=== PATIENT | female | born 1980 | race Caucasian/White ===

== ENCOUNTER 2024-12-15 15:09 | Emergency (ER) | payer OTHER, SELFPAY ==
--- OUTSIDE RECORDS SUMMARY | 2016-03-31 01:00 | XMS_ITS | Encounter Summary ---
Author Organization [facility] Healthcare Address [address] [place] [address] Care Team Providers Care Canned Food Reconditioning Inspector Name Role Phone Unavailable Primary Care Provider Unavailabl e Reason for Visit * Diagnostic Imaging (Routine) - Pending Review Specialty Diagnoses / Procedures Referred By Contac t Referred To Contact Procedures Breast Imaging Screening Outside Reference Transcribed Order, Provider Referral ID Status Reason Start Date Expiration Date V isits Requested Visits Authorized [id number] Pending Review 12/17/2023 01/15/2025 1 1 Encounter Details Date Type Department Care Team (Late st Contact Info) Description 03/31/2016 Hospital Encounter [facility] [address] [place] [id number] Social History Tobacco Use Types Packs/Day Years Used Date Smoking Tobacco: Every Day Comments Unknown Sex and Gender Information Value Date Recorded Sex Assigned at Not on file Legal Sex Female 9:28 PM COMMUNITY RELATIONS POLICE LIEUTENANT Gender Identity Not on file Sexual Orientation Not on file documented as of this encounter Plan of Treatment Not on file documented as of this encounter Procedures Procedure Name Priority Date/Time Associated Diagnosis Comments BREAST IMAGING MG SCREENING OUTSIDE REFERENCE Routine 03/31/2016 12:00 AM COMMUNITY RELATIONS POLICE LIEUTENANT documented in this encounter Results * Breast Imaging Screening Outside Reference (03/31/2016 12:00 AM COMMUNITY RELATIONS POLICE LIEUTENANT) Impressions RAD[facility]MAMMO_[facility] - 12/17/2023 2:31 PM CDT These images are for Reference purposes only and have not been reviewed by [facility]iology. There will be no report generated by a [facility] Radiologist. Narrative RAD_MAMMO_[facility] - 12/17/2023 2:31 PM CDT EXAMINATION: Images For Reference Purposes Only us Provider Transcribed Order IMG MAMMO PROCEDURES Final Result RAD_MAMMO_[facility] documented in this encounter Visit Diagnoses Not on filedocumented in this encounter
--- OUTSIDE RECORDS SUMMARY | 2016-03-31 01:00 | XMS_ITS | Encounter Summary ---
Author Organization [facility] Healthcare Address [address] [place] [address] Care Team Providers Care Auto Camp Attendant Name Role Phone Unavailable Primary Care Provider Unavailabl e Reason for Visit * Diagnostic Imaging (Routine) - Pending Review Specialty Diagnoses / Procedures Referred By Contac t Referred To Contact Procedures Breast Imaging Screening Outside Reference Transcribed Order, Provider Referral ID Status Reason Start Date Expiration Date V isits Requested Visits Authorized [id number] Pending Review 12/17/2023 01/15/2025 1 1 Encounter Details Date Type Department Care Team (Late st Contact Info) Description 03/31/2016 Hospital Encounter [facility] Radiology [facility] [address] [place] [id number] Social History Tobacco Use Types Packs/Day Years Used Date Smoking Tobacco: Every Day Comments Unknown Sex and Gender Information Value Date Recorded Sex Assigned at Not on file Legal Sex Female 9:28 PM CARDIAC TECHNOLOGIST Gender Identity Not on file Sexual Orientation Not on file documented as of this encounter Plan of Treatment Not on file documented as of this encounter Procedures Procedure Name Priority Date/Time Associated Diagnosis Comments BREAST IMAGING MG SCREENING OUTSIDE REFERENCE Routine 03/31/2016 12:00 AM CARDIAC TECHNOLOGIST documented in this encounter Results * Breast Imaging Screening Outside Reference (03/31/2016 12:00 AM CARDIAC TECHNOLOGIST) Impressions RAD_MAMMO_[facility] - 12/17/2023 2:31 PM CDT These images are for Reference purposes only and have not been reviewed by [facility] Radiology. There will be no report generated by a [facility] Radiologist. Narrative RAD_MAMMO_[facility] - 12/17/2023 2:31 PM CDT EXAMINATION: Images For Reference Purposes Only us Provider Transcribed Order IMG MAMMO PROCEDURES Final Result RAD_MAMMO_[facility] documented in this encounter Visit Diagnoses Not on filedocumented in this encounter
--- NOTE | ~2024-12-15 | XR_ITS ---
Exam: Abdomen 1V HISTORY: ureterolithiasis COMPARISON: None. TECHNIQUE: Supine images of the abdomen FINDINGS: Bowel gas pattern is non-obstructive. There is no free air or deep sulci. Multiple well-circumscribed calculi are identified throughout the abdomen and pelvis, which may represent patient's ureteral lithiasis. These are as follows: 4.7 mm calculus projecting over the expected region of the left kidney. 5.8 mm calculus projecting over the expected region of the mid to distal right ureter. 3.4 mm calculus within the right hemipelvis. Bones and soft tissues are unremarkable. IMPRESSION: Nonspecific, nonobstructive bowel gas pattern. Multiple well-circumscribed calculi projecting over the abdomen and pelvis, as detailed above. Reviewed, dictated and finalized at location A.
--- OUTSIDE RECORDS SUMMARY | 2024-12-15 15:12 | XMS_ITS | Encounter Summary ---
Author Organization [facility] Address [address] [place] [id number] Care Team Providers Care Medical Artist Name Role Phone Shelby Tomlinson DO Primary Care Provider Encounter Details Date Type Department Care Team (Late st Contact Info) Description 01/26/2023 Hymite Message [facility] Family & Internal Medicine - [address] [phone] Mychart, [facility] Provider Screening Social History Tobacco Use Types Packs/Day Years Used Date Smoking Tobacco: Every Day Cigarettes 0.5 20 Smokeless Tobacco: Never Comments:PCP to application counselor Alcohol Use Standard Drinks/Week Comments Yes 1.7 (1 standard drink = 0.6 oz p ure alcohol) AUDIT-C Answer Date Recorded Frequency of Alcohol Consumption Monthly or less 09/27/2018 Average Number of Drinks 1 or 2 019 Frequency of Binge Drinking Not on file 07/2018 PHQ-2 Answer Date Recorded Patient Health Questionnaire-2 Score 0 06/05/2022 Comments No Sex and Gender Information Value Date Recorded Sex Assigned at Female 03/05/2020 8:01 AM DISPOSAL WORKER Legal Sex Female 6:51 PM CDT Gender Identity Female 03/05/2020 8:01 AM DISPOSAL WORKER Sexual Orientation Straight 03/05/2020 8: 01 AM DISPOSAL WORKER 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 Not on file Not on file Not on file documented as of this encounter Plan of Treatment Not on file documented as of this encounter Visit Diagnoses Not on filedocumented in this encounter Additional Health Concerns Infection Onset Date Last Indicated Resolved Time COVID-19 Rule Out 04/21/2023 04/21/2023 04/21/2023 3:35 PM DISPOSAL WORKER Assessment Noted Time PHQ-9 Depression Total Score: 0 06/05/19 7:48 AM DISPOSAL WORKER documented as of this encounter Care Teams Medical Artist Relationship Specialty Start Date End Date Shelby Tomlinson DO [address] [place] [address] [place] [address] PCP - General FAMILY PRACTICE 06/17/18 documented as of this encounter
--- OUTSIDE RECORDS SUMMARY | 2024-12-15 15:12 | XMS_ITS | Clinical Summary ---
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/27/2011 Family History Medical History Relation Name Comments Cancer Other Reported Family History Of Cancer - Father and Grandmother (Added by TW Conv) Heart disease Other Heart Disease - Mother and Grandfather (Added by TW Conv) Hypertension Other Reported Previo us High Blood Pressure - Sister and Mother (Added by TW Conv) Other Other Blood Disorders - Aunt and Grandmother (Added by TW Conv) Relation Name Status Comments Other Social History Tobacco Use Types Packs/Day Years Used Date Smoking Tobacco: Every Day Comments Unknown Sex and Gender Information Value Date Recorded Sex Assigned at Not on file Legal Sex Female 9:28 PM PEER SPECIALIST Gender Identity Not on file Sexual Orientation Not on file Obstetrics History Last Filed Vital Signs Vital Sign Reading Time Taken Comments Blood Pressure 89/55 05/17/2012 10:30 AM PEER SPECIALIST Pulse - - Temperature - - Respiratory Rate - - Oxygen Saturation - - Inhaled Oxygen Concentration - - Weight 74.6 kg (164 lb 8.1 oz) 05/17/2012 10:30 AM PEER SPECIALIST Height - - Body Mass Index - - Plan of Treatment Health Maintenance Due Date Last Done Comments Cervical Cancer Screening 1982 Depression Screening 1982 Hepatitis C Screening 1982 Varicella Vaccines (1 of 2 - 13+ 2-dose series) 1995 DTaP/Tdap/Td Vaccine (6 - Tdap) 12/01/1997 11/30/1997, 12/10/1987, 10/25/1985, Additional history exists Regular Well Visit/Exam 18-64 02/14/2000 Pneumococcal vaccine <65 (2 of 2 - PCV) 05/30/2016 05/30/2015 Covid-19 Vaccine (3 - 2023-2 5 season) 2023 07/29/2020, 07/01/2020 Breast Cancer Screening-Mammogram 12/23/2024 024 Influenza Vaccine (#1) 2024 03/05/2020, 2015 Hepatitis B Screening Completed 06/25/1998 , 01/16/1998, 12/12/1997 HPV Vaccines Completed 06/27/2009, 01/25, 12/12/2008 Procedures Procedure Name Priority Date/Time Associated Diagnosis Comments SCREENING MAMMOGRAM BILATERAL W JAMES Schedule Routine, Read Routine (OP Routine) 12/24/2023 1:00 PM CDT Screening mammogram, encounter for from Last 3 Months or Most Recently Relevant to Health Maintenance Results * Screening Mammogram Bilateral W James (12/24/2023 1:00 PM CDT) Anatomical Region Laterality Modality Breast Bilateral Mammography Narrative 12/28/2023 3:35 PM CDT Mammogram Technique: Bilateral Digital Breast Tomosynthesis, Bilateral C-view 2D Screening mammogram. Views obtained: bilateral craniocaudal and bilateral mediolateral oblique. Computer Aided Detection was performed. Mammogram Findings: The present examination has been compared to a prior imaging study performed at [facility] [place] on 03/31/2016. There are scattered areas of fibroglandular density. There is no suspicious abnormality in either breast. There are no significant changes from the prior study. Impression: There is no mammographic evidence of malignancy. Annual screening mammography is recommended. OVERALL FINAL ASSESSMENT: BI-RADS CATEGORY 1: Negative. Procedure Note Molly Nair MD - 12/28/2023 Mammogram Technique: Bilateral Digital Breast Tomosynthesis, Bilateral C-view 2D Screening mammogram. Views obtained: bilateral craniocaudal and bilateral mediolateral oblique. Computer Aided Detection was performed. Mammogram Findings: The present examination has been compared to a prior imaging study performed at [facility] on 03/31/2016. There are scattered areas of fibroglandular density. There is no suspicious abnormality in either breast. There are no significant changes from the prior study. Impression: There is no mammographic evidence of malignancy. Annual screening mammography is recommended. OVERALL FINAL ASSESSMENT: BI-RADS CATEGORY 1: Negative. us Self Screening Mammogram IMG MAMMO PROCEDURES Fi nal Result from Last 3 Months or Most Recently Relevant to Health Maintenance [place] For more information, please contact: [phone] Documents on File Type Date Recorded Patient Partner Alliance Manager Expl anation ADVANCE DIRECTIVE 08/23/2018 8:49 AM Care Teams Environmental Health Manager Relationship Specialty Start Date End Date Shelby Tomlinson DO [address] [place] [address] [place] [address] PCP - General Sports Medicine 11/18/23
--- OUTSIDE RECORDS SUMMARY | 2024-12-15 15:12 | XMS_ITS | Clinical Summary ---
Author Organization [facility] Address [address] [place] [address] Care Team Providers Care Pricing Associate Name Role Phone Shelby Tomlinson DO Primary Care Provider [phone] Allergies Active Allergy Reactions Criticality Noted Date Comments Prochlorperazine Throat swelling 06/17/2018 Diphenhydramine Unknown 12/09/2011 Medications albuterol sulfate HFA (PROAIR HFA) 108 (90 Base) MCG/ACT inhalerIndications :Cough,COVID Inhale 2 puffs into the lungs every 4 (four) hours as needed for Wheezing or Shortness of breath (cough). 18 g 3 05/01/19 22 Active Additional Information Patient not taking.Reported on 03/31/2024 estradiol 1 MG tablet Take 2 tablets (2 mg total) by mouth daily. Taking 2 mg daily 08/06/19 22 Active ondansetron (ZOFRAN-ODT) 4 MG disintegrating tablet Take 1 tablet (4 mg total) by mouth every 8 (eight) hours as needed for Nausea. 20 tablet 03/26/20 22 Active buPROPion (WELLBUTRIN) 100 MG tablet Take 1 tablet (100 mg total) by mouth 2 (two) times daily. 04/10/20 23 Active progesterone (PROMETRIUM) 200 MG capsule Take 1 capsule (200 mg total) by mouth daily. 04/10/20 23 Active clobetasol (TEMOVATE) 0.05 % creamIndications:D yshidrotic eczema Apply topically 2 (two) times daily. 30 g 3 08/19/19 24 Active methylPREDNISolone , ADILSON, (MEDROL DOSEPAK) 4 MG tabletIndications: Brachioradialis muscle tenderness 6 TABLETS ON d1, 5 TABLETS d2, 4 TABLETS DAY THREE, 3 TABLETS d4, 2 TABLETS d5, AND 1 TABLET d6 1 each 03/31/20 24 Active meloxicam (MOBIC) 15 MG tabletIndications: Brachioradialis muscle tenderness TAKE 1 TABLET (15 MG TOTAL) BY MOUTH DAILY. 30 tablet 3 08/29/19 25 Active oxyCODONE-acetamin ophen (PERCOCET) 5-325 MG tabletIndications: Acute Pain < 3 Day Supply Take 1-2 tablets by mouth every 6 (six) hours as needed for Pain. Indications: Acute Pain < 3 Day Supply 6 tablet 11/30/19 25 Active naloxone (NARCAN) 4 MG/0.1ML nasal spray 1 spray by Nasal route as needed for Opioid reversal. may repeat every 2 to 3 minutes in alternating nostrils until medical assistance becomes available 1 each 11/30/19 25 026 Active cephALEXin (KEFLEX) 500 MG capsuleIndications :UTI (urinary tract infection) Take 1 capsule (500 mg total) by mouth 4 (four) times daily. (Pt. Was given Keflex 500mg PO BID x [address] Elkin Tomlinson re. Pt. Take 500mg QID x full 14 days.) 28 capsule 12/02/19 25 Active traMADol (ULTRAM) 50 MG tabletIndications: Acute Pain < 7 Day Supply,KIDNEY STONE Take 1 tablet (50 mg total) by mouth 3 (three) times daily as needed for Pain. Indications: Acute Pain < 7 Day Supply, KIDNEY STONE 21 tablet 12/02/19 25 Active cephALEXin (KEFLEX) 500 MG capsule Take 1 capsule (500 mg total) by mouth 2 (two) times daily for 14 days. 28 capsule 11/30/19 25 025 Active Problems Problem Noted Date Diagnosed Date Kidney stone 04/10/2022 Other microscopic hematuria 04/10/2022 Tobacco dependence due to cigarettes 02/23/2019 Recurrent acute serous otitis media of both ears 03/23/2016 Overview (02/27/2019): Date Onset: 03/23/2016 Tinnitus 03/23/2016 Overview (02/27/2019): Date Onset: 03/23/2016 Adenocarcinoma of cervix (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 gma dec of ov cancer History of iron deficiency 03/13/2016 Overview (02/27/2019): Date Onset: 03/13/2016 Hormone replacement therapy (HRT) 03/13/2016 Overview (02/27/2019): Date Onset: 03/13/2016 Smoker 03/13/2016 Overview (02/27/2019): Date Onset: 03/13/2016 Vertigo 03/13/2016 Overview (02/27/2019): Date Onset: 03/13/2016 Intermittent asthma ([facility]) 07/05/2014 Overview (02/27/2019): Date Onset: 07/05/2014 Papilledema associated with increased intracrani al pressure 10/27/2011 Resolved Problems Problem Noted Date Diagnosed Date Resolved Date Placental abnormality, antepartum ([facility]) 02/27/2019 03/15/2020 Encounters Date Type Department Care Team Description 12/11/2024 4:07 PM CDT - 12/11/2024 11:59 PM CDT Hospital Encounter [facility] [address] [place] [id number] Zeyad Ramos MD Discharge Disposition: Home or Self Care (Routine Discharge) 12/11/2024 Travel 12/04/2024 Telephone [facility] [address] [phone] Shelby Tomlinson DO Prior Authorization (PA request Tramadol.) 12/01/2024 Telephone [facility] [address] [place] [address] Shelby Tomlinson DO Pain 12/01/2024 Orders Only [facility] [address] [facility] [place] [address] Shelby Tomlinson DO 11/29/2024 10:40 AM CDT - 11/29/2024 12:39 PM CDT Emergency [facility] [address] [place] [address] Tuyet Bermeo MD Abdominal Pain Discharge Disposition: Home or Self Care (Routine Discharge) 11/29/2024 Travel from Last 3 Months Immunizations Immunization Administration Dates Next Due Dtp 12/10/1987, 6,1982,1982,1982 Dtp (Generic) 12/10/1987, 6,1982,1982,1982 Fluzone 6 Months+ Quad (0.5 mL Prefilled Syringe) 03/05/2020 HPV4 (Gardasil) 06/27/2009,02/12/2009,12/12/2008 Hepatitis B Pediatric 06/25/1998, 999,01/16/1998,1997,12/12/1997,12/12/1997 Influenza Adult (Generic) 05/30/2015,05/30/2015 MMR 12/11/1992,06/29/1983 MMR (MMRII) 12/11/1992,06/29/1983 Opv 12/10/1987, 6,1982,1982,1982 Pneumococcal (Pneumovax 23) 05/30/2015, 6 Polio Opv (Generic) 12/10/1987, 6,1982,1982,1982 Td 11/30/1997 Td (TDVAX) 11/30/1997 Family History Relation Status Comments Father (Age 32) leukemia Mother Alive colon cancer at 54 Sister 1 Alive Sister 2 Alive Social History Tobacco Use Types Packs/Day Years Used Date Smoking Tobacco: Every Day Cigarettes 0.5 20 Smokeless Tobacco: Never Tobacco Cessation:Ready to Q uit: Not Asked; Counseling Given: Yes Comments:PCP to direct care counselor Alcohol Use Standard Drinks/Week Comments Yes 1.7 (1 standard drink = 0.6 oz p ure alcohol) AUDIT-C Answer Date Recorded Frequency of Alcohol Consumption Monthly or less 09/27/2018 Average Number of Drinks 1 or 2 019 Frequency of Binge Drinking Not on file 07/2018 PHQ-2 Answer Date Recorded Patient Health Questionnaire-2 Score 0 04/21/2023 Comments No Sex and Gender Information Value Date Recorded Sex Assigned at Female 03/05/2020 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 Legal Sex Female 6:51 PM CDT Gender Identity Female 03/05/2020 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65 11/29/2024 10:43 AM CDT Plan of Treatment Health Maintenance Due Date Last Done Comments Annual Physical 1985 DTaP, Tdap and Td Vaccines (3 - Tdap) 12/01/1997 11/30/1997, 11/30/1997, 12/10/1987, Additional history exists Hepatitis C 02/14/2000 Pneumococcal Vaccine: Pediatrics (0 to 5 Years) and At-Risk Patients (6 to 49 Years) (2 of 2 - PCV) 05/30/2016 05/30/2015, 05/30/2015 COVID-19 Vaccine (3 - 2024-25 season) 2023 07/29/2020, 07/01/2020 PHQ-2 (Physician Truchas) 04/26/2024 04/21/2023 Mammogram Screening 12/23/2025 12/24/2023, Hepatitis B Vaccines Completed 06/25/1998, 06/25/1998, 01/16/1998, Additional history exists HPV Vaccines Completed 06/27/2009, 01/25, 12/12/2008 Meningococcal B Vaccine Aged Out No l onger eligible based on patient's age to complete this topic Meningococcal Vaccine Aged Out No rose adolph eligible based on patient's age to complete this topic RSV Immunizations Under 20 Months Aged Out No longer eligible based on patient's age to complete this topic Procedures Procedure Name Priority Date/Time Associated Diagnosis Comments CT ABD+PEL WO CON Routine 12/11/2024 4:2 1 PM CDT Right ureteral stone URINE BACTERIA CULTURE STAT 12:[address] ABD+PEL KIDNEY STONE STAT 11/29/2024 11:22 AM CDT URINALYSIS MICRO ONLY Routine 11/29/2024 11:15 AM CDT URINALYSIS AUTO DIP STAT 11/29/2024 1 1:06 AM CDT LIPASE STAT 11/29/2024 11:05 AM CDT COMPREHENSIVE METABOLIC PANEL STAT 11/29/2024 11:05 AM CDT CBC W/DIFF AUTOMATED STAT 11/29/2024 11:05 AM CDT MAMMOGRAM GENERIC (SCAN ORDER) 12/24/2023 from Last 3 Months or Most Recently Relevant to Health Maintenance Results * CT ABD+PEL WO CON (12/11/2024 4:21 PM CDT) Anatomical Region Laterality Modality Abdomen Computed Tomogra phy 12/11/2024 7:21 PM CDT Impressions 12/11/2024 7:27 PM CDT IMPRESSION: 1. There is a 4 mm proximal right ureteric stone now without associated hydronephrosis. Multiple nonobstructing right renal stones measuring up to 3 mm, unchanged. 2. No CT evidence of bowel obstruction or acute appendicitis. Ordered By: ZEYAD RAMOS Interpreted By: Stanley Franco MD, 12/11/2024 7:21 PM Narrative 12/11/2024 7:27 PM CDT [address] [place] [address] PROCEDURE: CT ABD+PEL WO CON HISTORY: Right ureteral stone. TECHNIQUE: Helical CT of the abdomen and pelvis was performed without intravenous contrast. A dose lowering technique was used for this procedure, which may include, but is not limited to, dose reduction technique, automated exposure control, the use of iterative reconstruction, and ALARA (As Low As Reasonably Achievable) / Image Gently techniques. COMPARISON: CT abdomen and pelvis without contrast, 11/29/2024. FINDINGS CT ABDOMEN/PELVIS: Lower thorax: There is subsegmental atelectasis in the lower lobes. The heart is normal in size. Liver: The liver is normal in size. No intrahepatic mass is seen on this non- contrast exam. Biliary tree: The gallbladder is present. There is no biliary ductal dilatation. Spleen: The spleen is normal in size. Pancreas: Unremarkable. Adrenal glands: Unremarkable. Kidneys: There is no hydronephrosis. Multiple nonobstructing right renal stones measuring up to 3 mm. There is a proximal to mid right ureteric stone measuring up to 4 mm without associated hydronephrosis. Lymph nodes: Abdomen: There is no abdominal adenopathy. Pelvis: There is no pelvic adenopathy. Vasculature: The aorta is normal caliber. Peritoneum/mesentery/omentum: There is no free fluid or free air. GI tract: There is no bowel obstruction.The appendix is normal. The terminal ileum is unremarkable. Is a moderate fecal burden within the right colon. There is no abnormal bowel wall thickening to suggest acute inflammation. Pelvic urogenital structures:The bladder is grossly unremarkable. The uterus is not seen. There is no adnexal mass. Body wall: There are degenerative changes in the spine. No aggressive osseous lesions identified. Limitations: Evaluation of the solid parenchymal organs and vasculature is limited due to lack of intravenous contrast. Cedeno: (S/I) = series number / image number Procedure Note Stanley Franco MD - 12/11/[address] [place] [address] PROCEDURE: CT ABD+PEL WO CON HISTORY: Right ureteral stone. TECHNIQUE: Helical CT of the abdomen and pelvis was performed withoutintravenous contrast. A dose lowering technique was used for this procedure, which may include,but is not limited to, dose reduction technique, automated exposurecontrol, the use of iterative reconstruction, and ALARA (As Low AsReasonably Achievable) / Image Gently techniques. COMPARISON: CT abdomen and pelvis without contrast, 11/29/2024. FINDINGS CT ABDOMEN/PELVIS: Lower thorax: There is subsegmental atelectasis in the lower lobes. Theheart is normal in size. Liver: The liver is normal in size. No intrahepatic mass is seen on thisnon- contrast exam. Biliary tree: The gallbladder is present. There is no biliary ductaldilatation. Spleen: The spleen is normal in size. Pancreas: Unremarkable. Adrenal glands: Unremarkable. Kidneys: There is no hydronephrosis. Multiple nonobstructing right renalstones measuring up to 3 mm. There is a proximal to mid right uretericstone measuring up to 4 mm without associated hydronephrosis. Lymph nodes: Abdomen: There is no abdominal adenopathy. Pelvis: There is no pelvic adenopathy. Vasculature: The aorta is normal caliber. Peritoneum/mesentery/omentum: There is no free fluid or free air. GI tract: There is no bowel obstruction.The appendix is normal. Theterminal ileum is unremarkable. Is a moderate fecal burden within theright colon. There is no abnormal bowel wall thickening to suggest acuteinflammation. Pelvic urogenital structures:The bladder is grossly unremarkable. Theuterus is not seen. There is no adnexal mass. Body wall: There are degenerative changes in the spine. No aggressiveosseous lesions identified. Limitations: Evaluation of the solid parenchymal organs and vasculature islimited due to lack of intravenous contrast. Cedeno: (S/I) = series number / image number IMPRESSION: 1. There is a 4 mm proximal right ureteric stone now without associatedhydronephrosis. Multiple nonobstructing right renal stones measuring up to3 mm, unchanged. 2. No CT evidence of bowel obstruction or acute appendicitis. Ordered By: ZEYAD RAMOS Interpreted By: Stanley Franco MD, 12/11/2024 7:21 PM Zeyad Ramos MD CT Final Re sult * (ABNORMAL) CULTURE URINE (11/29/2024 12:39 PM CDT) SPEC DESCRIPTION URINE CLEAN CATCH 11/29/2024 12:38 PM CDT [facility] SPECIAL REQUESTS NO SPECIAL REQUEST 11/29/2024 12:38 PM CDT [facility] CULTURE RESULT >100,000 COL/ML ESCHERICHIA COLI (A) 12/01/2024 6:59 AM CDT [facility] URINE SPECIMEN OBTAINED BY CLEAN CATCH PROCEDURE / Unknown 11/29/2024 12:39 PM CDT 11/29/2024 12:40 PM CDT Narrative Organism Antibiotic Method Susceptibility Escherichia coli AMPICILLIN RONN (VITEK) <=2: Sensitive Escherichia coli AMPICILLIN/SULBACTAM RONN (VITEK) <=2: Sensitive Escherichia coli CEFTRIAXONE RONN (VITEK) <=1: Sensitive Escherichia coli CEFTAZIDIME RONN (VITEK) <=1: Sensitive Escherichia coli CEFAZOLIN RONN (VITEK) <=4: Sensitive Escherichia coli ESBL RONN (VITEK) NEG: Sensitive Escherichia coli NITROFURANTOIN RONN (VITEK) <=16: Sensitive Escherichia coli GENTAMICIN RONN (VITEK) <=1: Sensitive Escherichia coli LEVOFLOXACIN RONN (VITEK) <=0.12: Sensitive Escherichia coli PIPERACILLIN/TAZOBACTAM RONN (VITEK) <=4: Sensitive Escherichia coli TRIMETH-SULFAMETH. RONN (VITEK) <=20: Sensitive us Tuyet Bermeo MD MICROBIOLOGY - GENERAL ORDTamar [facility] Final Result [facility] [address] [place] [address], [place] [phone] [facility] [address] [place] [address], [place] * CT ABD+PEL KIDNEY STONE (11/29/2024 11:22 AM CDT) Anatomical Region Laterality Modality Abdomen Computed Tomogra phy 11/29/2024 11:3 1 AM CDT Impressions 11/29/2024 11:33 AM CDT IMPRESSION: 1. Mild right-sided hydronephrosis due to a 3 mm stone obstructing the proximal right ureter Ordered By: TUYET BERMEO Interpreted By: Charles Flores MD, 11/29/2024 11:31 AM Narrative 11/29/2024 11:33 AM CDT [address] [place] [address] CT ABDOMEN AND PELVIS WITHOUT CONTRAST Clinical history: Right flank pain. Technique: Helical images of the abdomen and pelvis were obtained without contrast. A dose lowering technique was used for this procedure, which may include, but is not limited to, dose reduction technique, automated exposure control, the use of iterative reconstruction, and ALARA (As Low As Reasonably Achievable) / Image Gently techniques. Comparison: March 26, 2022. FINDINGS: Images of the lower thorax demonstrate the visualized portion of the heart to appear normal. The lung bases are clear. Images of the abdomen demonstrate the overall size and morphology of the liver to be within normal limits. No hepatic lesions are observed. No ascites is seen. The gallbladder is present and normally distended. No stones are observed within its lumen and there is no evidence of cholecystitis or biliary obstruction. The pancreas, spleen, and adrenal glands appear grossly normal. The kidneys are normal in overall size. There is mild right-sided hydronephrosis which is due to a 3 mm stone within the proximal right ureter. In addition, several 1 mm stones are noted within a central calyx of the right kidney. No left-sided stones are present Images of the pelvis demonstrate the urinary bladder to appear normal. The uterus is surgically absent. The stomach and small bowel have a normal overall appearance. The appendix appears normal. The colon is within normal limits. No adenopathy or abnormal fluid collections are seen Procedure Note Charles Flores MD - 11/29/[address] [place] [address] CT ABDOMEN AND PELVIS WITHOUT CONTRAST Clinical history: Right flank pain. Technique: Helical images of the abdomen and pelvis were obtained withoutcontrast. A dose lowering technique was used for this procedure, which mayinclude, but is not limited to, dose reduction technique, automatedexposure control, the use of iterative reconstruction, and ALARA (As LowAs Reasonably Achievable) / Image Gently techniques. Comparison: March 26, 2022. FINDINGS: Images of the lower thorax demonstrate the visualized portion of the heartto appear normal. The lung bases are clear. Images of the abdomen demonstrate the overall size and morphology of theliver to be within normal limits. No hepatic lesions are observed. Noascites is seen. The gallbladder is present and normally distended. Nostones are observed within its lumen and there is no evidence ofcholecystitis or biliary obstruction. The pancreas, spleen, and adrenalglands appear grossly normal. The kidneys are normal in overall size. There is mild right-sidedhydronephrosis which is due to a 3 mm stone within the proximal rightureter. In addition, several 1 mm stones are noted within a central calyxof the right kidney. No left-sided stones are present Images of the pelvis demonstrate the urinary bladder to appear normal. Theuterus is surgically absent. The stomach and small bowel have a normal overall appearance. The appendixappears normal. The colon is within normal limits. No adenopathy orabnormal fluid collections are seen IMPRESSION: 1. Mild right-sided hydronephrosis due to a 3 mm stone obstructing theproximal right ureter Ordered By: TUYET BERMEO Interpreted By: Charles Flores MD, 11/29/2024 11:31 AM us Tuyet Bermeo MD CT Final Resul t * (ABNORMAL) URINALYSIS MICRO ONLY (11/29/2024 11:15 AM CDT) WBC/HPF >100(H) <6 /HPF 11/29/2024 8:12 PM CDT [facility] RBC/HPF 11(H) <6 /HPF 11/29/2024 8:12 PM CDT [facility] MUCUS RARE /LPF 11/29/2024 8:12 PM CDT [facility] WBC CLUMPS PRESENT 11/29/2024 8:12 PM CDT [facility] BACTERIA (U) RARE(A) NONE /HPF 11/29/2024 8:12 PM CDT [facility] SQUAMOUS EPITHELIALS FEW /HPF 11/29/2024 8:12 PM CDT [facility] 11/29/2024 11:1 5 AM CDT Tuyet Bermeo MD URINE ORDERABLES Final Resu lt [facility] [address] [place] [address], [place] [phone] * (ABNORMAL) URINALYSIS AUTO DIP (11/29/2024 11:06 AM CDT) COLOR (U) LIGHT YELLOW(A) YELLOW 11/29/2024 11:35 AM CDT [facility] TRANSPARENCY HAZY(A) CLEAR 11/29/2024 11:35 AM CDT [facility] SPECIFIC GRAVITY (U) 1.011 1.001 - 1.030 11/29/2024 11:35 AM CDT [facility] U PH 6.0 5.0 - 9.0 11/29/2024 11:35 AM CDT [facility] LEUKOCYTES (U) 4+(A) NEGATIVE 11/29/2024 11:35 AM CDT [facility] NITRITES 2+(A) NEGATIVE 11/29/2024 11:35 AM CDT [facility] PROTEIN RANDOM (U) TRACE(A) NEGATIVE 11/29/2024 11:35 AM CDT [facility] GLUCOSE (U) NORMAL NORMAL 11/29/2024 11:35 AM CDT [facility] KETONES MG/DL (U) NEGATIVE NEGATIVE 11/29/2024 11:35 AM CDT [facility] UROBILINOGEN NORMAL NORMAL EU/DL 11/29/2024 11:35 AM CDT [facility] BILIRUBIN (U) NEGATIVE NEGATIVE 11/29/2024 11:35 AM CDT [facility] BLOOD (U) 1+(A) NEGATIVE 11/29/2024 11:35 AM CDT [facility] URINE MICROSCOPIC URINE MICROSCOPIC TO FOLLOW. 11/29/2024 11:35 AM CDT [facility] URINE SPECIMEN OBTAINED BY CLEAN CATCH PROCEDURE / Unknown 11/29/2024 11:06 AM CDT us Tuyet Bermeo MD URINE ORDERABLES Final Resu lt [facility] [address] [place] [address], * COMPREHENSIVE METABOLIC PANEL (11/29/2024 11:05 AM CDT) GLUCOSE 82 70 - 99 MG/DL 11/29/2024 11:32 AM CDT [facility] BUN 13 7 - 18 MG/DL 11/29/2024 11:32 AM CDT [facility] CREATININE S/P/B 0.76 0.50 - 1.20 MG/DL 11/29/2024 11:32 AM CDT [facility] SODIUM S/P/B 137 136 - 145 MMOL/L 11/29/2024 11:32 AM CDT [facility] POTASSIUM S/P/B 4.1 3.5 - 5.1 MMOL/L 11/29/2024 11:32 AM CDT [facility] CHLORIDE S/P/B 102 100 - 108 MMOL/L 11/29/2024 11:32 AM CDT [facility] CO2 28.8 21.0 - 32.0 MMOL/L 11/29/2024 11:32 AM CDT [facility] CALCIUM S/P/B 8.7 8.5 - 10.1 MG/DL 11/29/2024 11:32 AM CDT [facility] BILIRUBIN TOTAL S/P/B 0.5 0.2 - 1.2 MG/DL 11/29/2024 11:32 AM CDT [facility] Comment: THIS ASSAY IS NOT RECOMMENDED FOR PATIENTS UNDERGOING TREATMENT WITH ELTROMBOPAG DUE TO THE POTENTIAL FOR FALSELY ELEVATED RESULTS. TOTAL PROTEIN S/P/B 7.0 6.4 - 8.2 G/DL 11/29/2024 11:32 AM CDT [facility] ALBUMIN S/P/B 3.8 3.4 - 5.0 G/DL 11/29/2024 11:32 AM CDT [facility] AST 18 15 - 37 U/L 11/29/2024 11:32 AM CDT [facility] ALT 30 14 - 55 U/L 11/29/2024 11:32 AM CDT [facility] ALKALINE PHOSPHATASE S/P/B 78 50 - 136 U/L 11/29/2024 11:32 AM CDT [facility] ANION GAP 6.2 5.0 - 15.0 MMOL/L 11/29/2024 11:32 AM CDT [facility] BUN CREATININE RATIO 17.1 6 - 26 11/29/2024 11:32 AM CDT [facility] A/G RATIO 1.2 1.0 - 2.5 RATIO 11/29/2024 11:32 AM CDT [facility] GFR ESTIMATE >90 >90 ML/MIN/1.7 3 M2 11/29/2024 11:32 AM CDT [facility] Comment: NOTE: eGFR is not calculated for patients <18 years of age. This is an estimated GFR calculation using the new CKD EPI creatinine equation without race and so does not require a correction factor for race. This estimated GFR should not be used for calculating drug doses. 11/29/2024 11:0 5 AM CDT us Tuyet Bermeo MD LABORATORY Final Resul t [facility] [address] [place] [address], * (ABNORMAL) CBC W/DIFF AUTOMATED (11/29/2024 11:05 AM CDT) WBC 12.10(H) 4.50 - 11.00 x10'3/uL 11/29/2024 11:20 AM CDT [facility] RBC 4.76 4.00 - 5.20 x10'6/uL 11/29/2024 11:20 AM CDT [facility] HGB 13.7 12.0 - 16.0 G/DL 11/29/2024 11:20 AM CDT [facility] HCT 41.0 38.0 - 48.0 % 11/29/2024 11:20 AM CDT [facility] MCV 86.1 80.0 - 100.0 FL 11/29/2024 11:20 AM CDT [facility] MCH 28.8 26.0 - 34.0 PG 11/29/2024 11:20 AM CDT [facility] MCHC 33.4 31.0 - 37.0 G/DL 11/29/2024 11:20 AM CDT [facility] RDW 12.8 11.6 - 14.8 % 11/29/2024 11:20 AM CDT [facility] PLT 272 130 - 400 x10'3/uL 11/29/2024 11:20 AM CDT [facility] MPV 10.0 7.0 - 12.0 FL 11/29/2024 11:20 AM CDT [facility] CBC COMMENT AUTOMATED RBC MORPHOLOGY AND PLATELET EVALUATION NORMAL 11/29/2024 11:20 AM CDT [facility] NEUTROPHILS % 67.0 40.0 - 74.0 % 11/29/2024 11:20 AM CDT [facility] LYMPHOCYTES % 24.6 14.0 - 46.0 % 11/29/2024 11:20 AM CDT [facility] MONOCYTES % 6.0 4.0 - 13.0 % 11/29/2024 11:20 AM CDT [facility] EOSINOPHILS 1.3 0.0 - 7.0 % 11/29/2024 11:20 AM CDT [facility] BASOPHILS 0.5 0.0 - 3.0 % 11/29/2024 11:20 AM CDT [facility] IMMATURE GRANS % 0.6(H) 0.0 - 0.43 % 11/29/2024 11:20 AM CDT [facility] NRBC % 0.0 % 11/29/2024 11:20 AM CDT [facility] ABS. NEUTROPHILS TOTAL 8.11(H) 1.69 - 7.81 x10'3/uL 11/29/2024 11:20 AM CDT [facility] ABS. LYMPHOCYTES 2.98 0.21 - 5.42 x10'3/uL 11/29/2024 11:20 AM CDT [facility] ABS. MONOCYTES 0.72 0.04 - 1.37 x10'3/uL 11/29/2024 11:20 AM CDT [facility] ABS. EOSINOPHILS 0.16 0.00 - 0.68 x10'3/uL 11/29/2024 11:20 AM CDT [facility] ABS. BASOPHILS 0.06 0.00 - 0.08 x10'3/uL 11/29/2024 11:20 AM CDT [facility] ABS. IMMATURE GRANULOCYTES 0.07(H) 0.00 - 0.06 x10'3/uL 11/29/2024 11:20 AM CDT [facility] ABS. NUCLEATED RBC'S 0.00 0.00 - 0.01 x10'3/uL 11/29/2024 11:20 AM CDT [facility] 11/29/2024 11:0 5 AM CDT Tuyet Bermeo MD LABORATORY Final Resul t Performing Organization Address [facility] de Phone Number [facility] [address] [place] [address], * LIPASE (11/29/2024 11:05 AM CDT) LIPASE 30 16 - 77 UNITS/L 11/29/2024 11:32 AM CDT [facility] 11/29/2024 11:0 5 AM CDT Tuyet Bermeo MD LABORATORY Final Resul t Performing Organization Address [facility] [place] [address], [place] * MAMMOGRAM GENERIC (SCAN ORDER) (12/24/2023) Anatomical Region Laterality Modality Other 12/24/2023 [facility] Scanned SCANNING Final Resu lt from Last 3 Months or Most Recently Relevant to Health Maintenance Insurance IE Care Teams Pricing Associate Relationship Specialty Start Date End Date Shelby Tomlinson DO [address] [place] [address] [place] [address] PCP - General FAMILY PRACTICE 06/17/18
--- OUTSIDE RECORDS SUMMARY | 2024-12-15 15:12 | XMS_ITS | Encounter Summary ---
Author Organization [facility] Address [address] [place] [address] Care Team Providers Care Bridge Builder Name Role Phone Shelby Tomlinson DO Primary Care Provider [phone] Encounter Details Date Type Department Care Team (Late st Contact Info) Description 10/02/2014 Abstract [facility] CONVERSION [address] [place] [address] , Generic Conversion, Social History Tobacco Use Types Packs/Day Years Used Date Smoking Tobacco: Never Assessed Comments Unknown Sex and Gender Information Value Date Recorded Sex Assigned at Female 03/05/2020 8:01 AM ELECTRONIC ORGAN MECHANIC Legal Sex Female 6:51 PM CDT Gender Identity Female 03/05/2020 8:01 AM ELECTRONIC ORGAN MECHANIC Sexual Orientation Straight 03/05/2020 8: 01 AM ELECTRONIC ORGAN MECHANIC documented as of this encounter Plan of Treatment Not on file documented as of this encounter Visit Diagnoses Not on filedocumented in this encounter Additional Health Concerns Infection Onset Date Last Indicated Resolved Time COVID-19 Rule Out 03/14/2021 03/14/2021 03/14/2021 11:26 AM ELECTRONIC ORGAN MECHANIC COVID-19 Rule Out 03/17/2021 03/17/2021 03/17/2021 12:33 PM ELECTRONIC ORGAN MECHANIC COVID-19 Rule Out 04/29/2021 04/29/2021 04/29/2021 3:41 PM ELECTRONIC ORGAN MECHANIC COVID-19 Confirmed 04/29/2021 04/29/2021 12:33 AM ELECTRONIC ORGAN MECHANIC COVID-19 Rule Out 04/30/2021 04/30/2021 05/01/2021 2:55 AM ELECTRONIC ORGAN MECHANIC COVID-19 Rule Out 03/26/2022 03/26/2022 03/26/2022 4:45 PM ELECTRONIC ORGAN MECHANIC COVID-19 Rule Out 03/27/2022 03/26/2022 03/27/2022 7:37 PM ELECTRONIC ORGAN MECHANIC COVID-19 Rule Out 04/21/2023 04/21/2023 04/21/2023 3:35 PM ELECTRONIC ORGAN MECHANIC documented as of this encounter Care Teams Bridge Builder Relationship Specialty Start Date End Date Shelby Tomlinson DO [address] [place] [address] [place] [address] PCP - General FAMILY PRACTICE 06/17/18 documented as of this encounter
--- OUTSIDE RECORDS SUMMARY | 2024-12-15 15:12 | XMS_ITS | Clinical Summary ---
Author Organization [facility] Address [address] [place] [address] Care Team Providers Care Manager Fire Name Role Phone Shelby Tomlinson DO Primary Care Provider [phone] Source Comments [facility],non-owned Affiliates and Associated Physician Practices is amultiple site organization consisting of ambulatory clinics and hospital sitesin [place], [place], [place] and [place]. This disclosure is being madepursuant to the Care Everywhere program and may not contain all information available regarding this patient. Last updated 18.[facility] Active Problems Patient Care Coordination No te Formatting of this note migh t be different from the original. [id number] Problem Noted Date Diagnosed Date Placental abnormality, antepartum Encounter for routine screen ing for malformation using ultrasonics Social History Tobacco Use Types Packs/Day Years Used Date Smoking Tobacco: Never Assessed Comments No Sex and Gender Information Value Date Recorded Sex Assigned at Not on file Legal Sex Female 1:26 PM CDT Gender Identity Not on file Sexual Orientation Not on file Plan of Treatment Health Maintenance Due Date Last Done Comments LIPID TESTING 1982 MAMMOGRAM 1982 HIV SCREENING 1997 HEPATITIS C SCREENING 02/09/2000 DTAP/TDAP/TD VACCINES (1 - Tdap) 2001 HEPATITIS B VACCINE (1 of 3 - 19+ 3-dose series) 2001 HPV VACCINE (1 - 3-dose SCDM series) 2009 COVID-19 VACCINE (2023-2 5 season) 2023 DEPRESSION SCREENING 04/26/2024 INFLUENZA VACCINE (#1) 2024 ZOSTER VACCINE (1 of 2) 02/14/2032 HIB VACCINE Aged Out No longer eligi ble based on patient's age to complete this topic MENINGOCOCCAL (Group B) VACC INE SHARED DECISION-MAKING Aged Out No longer eligibl e based on patient's age to complete this topic MENINGOCOCCAL GROUPS A/C/Y/W VACCINE Aged Out No longer eligible b ased on patient's age to complete this topic PNEUMOCOCCAL VACCINE Aged Out No long er eligible based on patient's age to complete this topic Insurance ANTHEM Care Teams Manager Fire Relationship Specialty Start Date End Date Shelby Tomlinson DO PCP - General Family Medicine 01/17/15
[2024-12-15 15:36] VITALS: BP 107/52; PULSE 78; RESP 19; TEMP 36.7; O2SAT 98
[2024-12-15 15:39] LABS: Hematocrit 38.7 % (37.0-47.0); Hemoglobin 12.5 g/dL (12.0-15.0); Immature Granulocyte Percent A 0.3 % (0-0.5); Lymphocytes Absolute Auto 3.28 K/mm3 (0.9-3.2); Mean Corpuscular HGB Conc 32.3 g/dl (32-36); Mean Corpuscular Hemoglobin 28.3 pg (26-34); Mean Corpuscular Volume 87.8 fl (80-100); Nucleated Red Blood Cells Absolute Auto 0.000 K/mm3 (0.0-0.012); Nucleated Red Blood Cells Perc 0.0 % (0.0-0.2); Platelet Count Result 279 k/mm3 (150-375); Red Blood Count 4.41 M/mm3 (4.2-5.4); White Blood Count 10.9 K/mm3 (4.5-10.0)
[2024-12-15 15:40] LABS: BEDSIDEPREGUCG Negative (Negative)
[2024-12-15 15:45] LABS: Add Urine Microscopic? YES; Appearance Urine Cloudy (Clear); Glucose Urine UA Negative (Negative); Leukocyte Esterase Ur 1+ LEU/UL (Negative); Nitrate Urine Negative (Negative); Non Pathogenic Casts 0-2; Specific Grav Ur 1.023 (1.001-1.035)
--- NOTE | 2024-12-15 15:51 | ED_ITS ---
HPI - Abdominal Pain General Chief Complaint: Urogenital-Female Stated Complaint: kidney stones, xray Time Seen by Provider: 12/15/24 15:23 Source: patient Mode of arrival: ambulatory Limitations: no limitations History of Present Illness HPI narrative: This is a 44-year-old female that presents to the emergency department for an x- ray of her abdomen. Reports she was called today and told to come to the ER to get an x-ray to check for kidney stones. Reports she has known kidney stones currently. Is following with Urology for this. Denies fevers, vomiting, dysuria. Related Data Allergies Allergy/AdvReac Type Severity Reaction Status Date / Time prochlorperazine (From Allergy Severe Anaphylaxis Verified 12/15/24 15:11 Compazine) Review of Systems 2 Review of Systems: All systems reviewed & are unremarkable except as noted in HPI and below PMFSH Past Medical History Medical History (Updated 12/15/24 @ 16:57 by Tasha Mg PA-C) History of anxiety Exam 2 Narrative: GENERAL: Well-appearing, well-nourished, and in no acute distress. HEAD: Normocephalic, atraumatic. EYES: EOMI. CHEST: Clear to auscultation. No respiratory distress. No wheezes rales or rhonchi HEART: Regular rate and rhythm. No murmur heard. Normal peripheral pulses. ABDOMEN: Soft, nontender, nondistended, normal active bowel sounds. EXTREMITIES: Normal range of motion. No edema. SKIN: Warm, dry, no rash. NEURO: No focal deficits. Alert and oriented x3. PSYCH: Normal mood and affect Course Course Emergency Course: Patient updated on his workup and agrees with plan of care Consultations Consultation #1: Spoke with urology about patient and workup. Patient will be given urine strainer. Will follow up outpatient for likely procedure Date: 12/15/24 Vital Signs Vital signs: Vital Signs Temperature 98.0 F 12/15/24 15:36 Pulse Rate 78 12/15/24 15:36 Respiratory Rate 19 12/15/24 15:36 Blood Pressure 107/52 L 12/15/24 15:36 Pulse Oximetry 98 12/15/24 15:36 Temperature 98.0 F 12/15/24 15:36 Pulse Rate 78 12/15/24 15:36 Respiratory Rate 19 12/15/24 15:36 Blood Pressure 107/52 L 12/15/24 15:36 Pulse Oximetry 98 12/15/24 15:36 MDM - Abdominal Pain MDM Narrative Medical decision making narrative: Patient presents to the ER for known kidney stones. Reporting she was instructed by urology to come to the ER for KUB. Patient is afebrile and nontoxic appearing. Her vitals are stable. CBC with mild leukocytosis to 10.9. Metabolic panel with normal appearing kidney function. UA with 1+ leuk esterase, 11-20 white blood cells, 1+ bacteria. This will be sent for culture. Patient will be started on oral antibiotics. KUB shows 5.8 mm calculus projecting over the expected region of the mid to distal right ureter. 3.4 calculus within the right hemipelvis. Spoke with urology about patient and workup. Patient will be given urine strainer. Will follow up outpatient for likely procedure. Patient updated on his workup and agrees with plan of care. She was given warnings to return to the ER Differential Diagnosis Differential diagnosis: Likely calculus of kidney and other (UTI) Lab Data Attestation: I reviewed the patient's lab results. 12/15/24 15:31 12/15/24 15:31 Labs: Lab Results 12/15/24 12/15/24 Range/Units 15:31 15:36 WBC 10.9 H (4.5-10.0) K/mm3 RBC 4.41 (4.2-5.4) M/mm3 Hgb 12.5 (12.0-15.0) g/dL Hct 38.7 (37.0-47.0) % MCV 87.8 (80-100) fl MCH 28.3 (26-34) pg MCHC 32.3 (32-36) g/dl RDW 13.1 (11.5-14.5) % Plt Count 279 (150-375) k/mm3 MPV 9.8 (7.4-10.4) fl Immature Gran % (Auto) 0.3 (0-0.5) % Neut % (Auto) 61.7 (45.5-73.1) % Lymph % (Auto) 30.2 (18.3-44.2) % [place] % (Auto) 5.5 (2.6-8.5) % Eos % (Auto) 1.7 (0-4.4) % Baso % (Auto) 0.6 (0.2-1.2) % Lymph # (Auto) 3.28 H (0.9-3.2) K/mm3 [place] # (Auto) 0.6 (0.1-0.6) K/mm3 Eos # (Auto) 0.2 (0-0.3) K/mm3 Baso # (Auto) 0.1 (0.0-0.1) K/mm3 Abs Immat Gran (auto) 0.03 (0.00-0.031) K/mm3 Absolute Neuts (auto) 6.7 (1.3-6.7) K/mm3 Absolute Nucleated RBC 0.000 (0.0-0.012) K/mm3 Nucleated RBC % 0.0 (0.0-0.2) % Sodium 138 (137-145) mmol/L Potassium 4.4 (3.4-5.0) mmol/L Chloride 108 H (98-107) mmol/L Carbon Dioxide 24 (22-30) mmol/L Anion Gap 6 (4-12) mmol/L BUN 19 H (7-17) mg/dL Creatinine 0.83 (0.7-1.0) mg/dL Estim Creat Clear Calc 75 ml/min Estimated GFR > 60 (59 - ) Glucose 95 (65-110) mg/dL Calcium 9.1 (8.4-10.2) mg/dL Total Bilirubin 0.4 (0.2-1.3) mg/dL AST 35 (14-36) U/L ALT 26 (6-35) U/L Alkaline Phosphatase 55 (38-126) U/L Total Protein 6.7 (6.3-8.2) g/dL Albumin 3.9 (3.5-5.1) g/dL Urine Color Yellow (Yellow) Urine Appearance Cloudy H (Clear) Urine pH 5.5 (5.0-9.0) Ur Specific [place] 1.023 (1.001-1.035) Urine Protein Negative (Negative) mg/dL Urine Glucose (UA) Negative (Negative) mg/dL Urine Ketones Trace H (Negative) mg/dL Ur Blood (Man) Negative (Negative) Urine Nitrate Negative (Negative) Urine Bilirubin Negative (Negative) Urine Urobilinogen 1.0 (<2.0) mg/dL Leukocyte Esterase Rfl 1+ H (Negative) MILANA/UL Urine RBC 0-2 (0-2) /hpf Urine WBC 11-20 H (0-3) /hpf Ur Squamous Epith Cells None seen (Few) /hpf Urine Bacteria 1+ H /hpf Urine Casts 0-2 POC Urine HCG, Qual Negative (Negative) Imaging Data Radiologist's impression: ITS Impressions Abdomen X-Ray 12/15/24 16:24 IMPRESSION: Nonspecific, nonobstructive bowel gas pattern. Multiple well-circumscribed calculi projecting over the abdomen and pelvis, as detailed above. Critical Care Time Critical Care Time Critical Care Time: No Discharge Plan Discharge Clinical Impression: Ureterolithiasis, Pyuria Patient Disposition: Home Condition: Stable Instructions: Antibiotic Form, Kidney Stones (ED), How to Strain Your Urine (ED) Additional Instructions: Return to the ER if you experience fever, abdominal pain with nausea and vomiting, you are unable to keep down liquids or solids, pain or burning with urination, or any other symptoms that are concerning to you Remain well hydrated. Pain medication as needed. Continue tamsulosin as prescribed. Strain your urine. Take oral antibiotic as prescribed Follow up with your urologist Patient Language: Ukrainian Prescriptions: New cephalexin 500 mg capsule 500 mg PO Q12H 5 Days Qty: 10 0RF Follow-up/Referrals: Zeyad Ramos MD [Physician, Urology] PHYSICIAN NOT ON STAFF,NONSTAFF [Non-Staff]
[2024-12-15 16:03] LABS: Alanine Aminotransferase 26 U/L (6-35); Albumin Level 3.9 g/dL (3.5-5.1); Alkaline Phosphatase 55 U/L (38-126); Anion Gap 6 mmol/L (4-12); Aspartate Amino Transferase 35 U/L (14-36); Bilirubin,Total 0.4 mg/dL (0.2-1.3); Blood Urea Nitrogen 19 mg/dL (7-17); Calcium 9.1 mg/dL (8.4-10.2); Carbon Dioxide 24 mmol/L (22-30); Chloride 108 mmol/L (98-107); Estimated CRCL calculation 75 ml/min; Estimated Glomerular Filt Rate > 60; Glucose 95 mg/dL (65-110); Potassium 4.4 mmol/L (3.4-5.0); Sodium 138 mmol/L (137-145); Total Protein 6.7 g/dL (6.3-8.2)
--- OUTSIDE RECORDS SUMMARY | 2024-12-15 16:49 | XMS_ITS | Clinical Summary ---
Author Organization [facility] Address [address] [place] [address] Care Team Providers Care Petrography Teacher Name Role Phone Shelby Tomlinson DO Primary Care Provider [phone] Source Comments [facility],non-owned Affiliates and Associated Physician Practices is amultiple site organization consisting of ambulatory clinics and hospital sitesin [place], [place], [place] and [place]. This disclosure is being madepursuant to the Care Everywhere program and may not contain all information available regarding this patient. Last updated 18.[facility] Active Problems Patient Care Coordination No te Formatting of this note migh t be different from the original. [id number] Problem Noted Date Diagnosed Date Placental abnormality, [...] complete this topic Insurance ANTHEM Care Teams Petrography Teacher Relationship Specialty Start Date End Date Shelby Tomlinson DO PCP - General Family Medicine 01/17/15
--- OUTSIDE RECORDS SUMMARY | 2024-12-15 16:49 | XMS_ITS | Clinical Summary ---
Author Organization [facility] Address [address] [place] [address] Care Team Providers Care Value Stream Coach Name Role Phone Shelby Tomlinson DO Primary Care Provider [phone] Allergies Active Allergy Reactions Criticality Noted Date [...] on file Legal Sex Female 9:28 PM CLOTHING EXAMINER Gender Identity Not on file Sexual Orientation Not on file Obstetrics History Last Filed Vital Signs Vital Sign Reading Time Taken Comments Blood Pressure 89/55 05/17/2012 10:30 AM CLOTHING EXAMINER Pulse - - Temperature - - Respiratory Rate - - Oxygen Saturation - - Inhaled Oxygen Concentration - - Weight 74.6 kg (164 lb 8.1 oz) 05/17/2012 10:30 AM CLOTHING EXAMINER Height - - Body Mass Index - [...] to a prior imaging study performed at [facility], [facility]mill[facility] [place] on 03/31/2016. There are scattered areas of [...] to a prior imaging study performed at [facility] on 03/31/2016. There are scattered areas [...] Advance Directives For more information, please contact: [phone] Documents on File Type Date Recorded Patient Tender Coordinator Expl anation ADVANCE DIRECTIVE 08/23/2018 8:49 AM Care Teams Value Stream Coach Relationship Specialty Start Date End Date Shelby Tomlinson DO [address] [place] [address] [place] [address] PCP - General Sports Medicine 11/18/23
--- OUTSIDE RECORDS SUMMARY | 2024-12-15 16:49 | XMS_ITS | Encounter Summary ---
Author Organization [facility] Address [address] [place] [address] Care Team Providers Care Hand I Cutter Name Role Phone Shelby Tomlinson DO Primary Care Provider [phone] Encounter Details Date Type Department Care Team (Late st Contact Info) Description 10/02/2014 Abstract SJB CONVERSION [address] [place] [address] , Generic Conversion, Social History Tobacco Use Types Packs/Day Years Used Date Smoking Tobacco: Never Assessed Comments Unknown Sex and Gender Information Value Date Recorded Sex Assigned at Female 03/05/2020 8:01 AM VOCATIONAL EDUCATION TEACHER Legal Sex Female 6:51 PM CDT Gender Identity Female 03/05/2020 8:01 AM VOCATIONAL EDUCATION TEACHER Sexual Orientation Straight 03/05/2020 8: 01 AM VOCATIONAL EDUCATION TEACHER documented as of this encounter Plan of Treatment Not on file documented as of this encounter Visit Diagnoses Not on filedocumented in this encounter Additional Health Concerns Infection Onset Date Last Indicated Resolved Time COVID-19 Rule Out 03/14/2021 03/14/2021 03/14/2021 11:26 AM VOCATIONAL EDUCATION TEACHER COVID-19 Rule Out 03/17/2021 03/17/2021 03/17/2021 12:33 PM VOCATIONAL EDUCATION TEACHER COVID-19 Rule Out 04/29/2021 04/29/2021 04/29/2021 3:41 PM VOCATIONAL EDUCATION TEACHER COVID-19 Confirmed 04/29/2021 04/29/2021 12:33 AM VOCATIONAL EDUCATION TEACHER COVID-19 Rule Out 04/30/2021 04/30/2021 05/01/2021 2:55 AM VOCATIONAL EDUCATION TEACHER COVID-19 Rule Out 03/26/2022 03/26/2022 03/26/2022 4:45 PM VOCATIONAL EDUCATION TEACHER COVID-19 Rule Out 03/27/2022 03/26/2022 03/27/2022 7:37 PM VOCATIONAL EDUCATION TEACHER COVID-19 Rule Out 04/21/2023 04/21/2023 04/21/2023 3:35 PM VOCATIONAL EDUCATION TEACHER documented as of this encounter Care Teams Hand I Cutter Relationship Specialty Start Date End Date Shelby Tomlinson DO [address] [place] [address] [place] [address] PCP - General FAMILY PRACTICE 06/17/18 documented as of this encounter
--- OUTSIDE RECORDS SUMMARY | 2024-12-15 16:49 | XMS_ITS | Encounter Summary ---
Author Organization [facility] Address [address] [place] [address] Care Team Providers Care Air Plant Engineer Name Role Phone Shelby Tomlinson DO Primary Care Provider [phone] Encounter Details Date Type Department Care Team (Late st Contact Info) Description 01/26/2023 Sighter Message [facility] Family & Internal Medicine - [address] [address] Mychart, [facility] Provider Screening Social History Tobacco Use Types Packs/Day Years Used Date Smoking Tobacco: Every Day Cigarettes 0.5 20 Smokeless Tobacco: Never Comments:PCP to student services counselor Alcohol Use Standard Drinks/Week Comments Yes [...] Sex Assigned at Female 03/05/2020 8:01 AM CYLINDER GRINDER Legal Sex Female 6:51 PM CDT Gender Identity Female 03/05/2020 8:01 AM CYLINDER GRINDER Sexual Orientation Straight 03/05/2020 8: 01 AM CYLINDER GRINDER 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 Not on file Not on file Not on file documented as of this encounter Plan of Treatment Not on file documented as of this encounter Visit Diagnoses Not on filedocumented in this encounter Additional Health Concerns Infection Onset Date Last Indicated Resolved Time COVID-19 Rule Out 04/21/2023 04/21/2023 04/21/2023 3:35 PM CYLINDER GRINDER Assessment Noted Time PHQ-9 Depression Total Score: 0 06/05/19 7:48 AM CYLINDER GRINDER documented as of this encounter Care Teams Air Plant Engineer Relationship Specialty Start Date End Date Shelby Tomlinson DO [address] [place] [address] [place] [address] PCP - General FAMILY PRACTICE 06/17/18 documented as of this encounter
--- OUTSIDE RECORDS SUMMARY | 2024-12-15 16:49 | XMS_ITS | Clinical Summary ---
Author Organization [facility] Address [address] [place] [address] Care Team Providers Care Interior Assemblies Developer Prover Name Role Phone Shelby Tomlinson DO Primary Care Provider [phone] Allergies Active Allergy Reactions Criticality Noted Date [...] (02/27/2019): Date Onset: 03/23/2016 Adenocarcinoma of cervix ([facility]) 03/13 Overview (02/27/2019): Date Onset: 03/13/2016 History of hysterectomy 03/13/2016 Overview (02/27/2019): Date Onset: 03/13/2016 Assessment & Plan (03/05/2020 7:55 AM SIDEROGRAPHER): Also has had ovaries removed 2nd to cervical cancer. gma dec of ov cancer History of iron deficiency 03/13/2016 Overview (02/27/2019): Date Onset: 03/13/2016 Hormone replacement therapy (HRT) 03/13/2016 Overview (02/27/2019): Date Onset: 03/13/2016 Smoker 03/13/2016 Overview (02/27/2019): Date Onset: 03/13/2016 Vertigo 03/13/2016 Overview (02/27/2019): Date Onset: 03/13/2016 Intermittent asthma ([facility]) 07/05/2014 Overview (02/27/2019): Date Onset: 07/05/2014 Papilledema associated with increased intracrani al pressure 10/27/2011 Resolved Problems Problem Noted Date Diagnosed Date Resolved Date Placental abnormality, antepartum ([facility]) 02/27/2019 03/15/2020 Encounters Date Type Department Care Team Description 12/11/2024 4:07 PM CDT - 12/11/2024 11:59 PM CDT Hospital Encounter [facility] [address] [place] [id number] Zeyad Ramos MD Discharge Disposition: Home or Self Care (Routine Discharge) 12/11/2024 Travel 12/04/2024 Telephone [facility] [address] [phone] Shelby Tomlinson DO Prior Authorization (PA request Tramadol.) 12/01/2024 Telephone [facility] [address] [place] [address] Shelby Tomlinson DO Pain 12/01/2024 Orders Only [facility] [address] [facility] [place] [address] Shelby Tomlinson DO 11/29/2024 10:40 AM CDT - 11/29/2024 12:39 PM CDT Emergency [facility] Emergency Services [address] [place] [address] Tuyet Bermeo MD Abdominal Pain Discharge Disposition: [...] Not Asked; Counseling Given: Yes Comments:PCP to scholarship counselor Alcohol Use Standard Drinks/Week Comments Yes [...] Sex Assigned at Female 03/05/2020 8:01 AM SIDEROGRAPHER Legal Sex Female 6:51 PM CDT Gender Identity Female 03/05/2020 8:01 AM SIDEROGRAPHER Sexual Orientation Straight 03/05/2020 8: 01 AM SIDEROGRAPHER 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 [address] PROCEDURE: CT ABD+PEL WO CON HISTORY: Right [...] Procedure Note Stanley Franco MD - 12/11/[address] [place] [address] PROCEDURE: CT ABD+PEL WO CON HISTORY: Right [...] URINE CLEAN CATCH 11/29/2024 12:38 PM CDT [facility] SPECIAL REQUESTS NO SPECIAL REQUEST 11/29/2024 12:38 PM CDT [facility] CULTURE RESULT >100,000 COL/ML ESCHERICHIA COLI (A) 12/01/2024 6:59 AM CDT [facility] URINE SPECIMEN OBTAINED BY CLEAN [...] Tuyet Bermeo MD MICROBIOLOGY - [facility]AL [facility] Final Result [facility] [address] [place] [address], [place] [phone] [facility] [address] [place] [address], [place] * CT ABD+PEL KIDNEY STONE (11/29/2024 11:22 AM CDT) Anatomical Region Laterality Modality Abdomen Computed Tomogra phy 11/29/2024 11:3 1 AM CDT Impressions 11/29/2024 11:33 AM CDT IMPRESSION: 1. Mild right-sided hydronephrosis due to a 3 mm stone obstructing the proximal right ureter Ordered By: TUYET BERMEO Interpreted By: Charles Flores MD, 11/29/2024 11:31 AM Narrative 11/29/2024 11:33 AM CDT [address] [place] [address] CT ABDOMEN AND PELVIS WITHOUT CONTRAST Clinical [...] Procedure Note Charles Flores MD - 11/29/[address] [place] [address] CT ABDOMEN AND PELVIS WITHOUT CONTRAST Clinical [...] >100(H) <6 /HPF 11/29/2024 8:12 PM CDT [facility] RBC/HPF 11(H) <6 /HPF 11/29/2024 8:12 PM CDT [facility] MUCUS RARE /LPF 11/29/2024 8:12 PM CDT [facility] WBC CLUMPS PRESENT 11/29/2024 8:12 PM CDT [facility] BACTERIA (U) RARE(A) NONE /HPF 11/29/2024 8:12 PM CDT [facility] SQUAMOUS EPITHELIALS FEW /HPF 11/29/2024 8:12 PM CDT [facility] 11/29/2024 11:1 5 AM CDT Tuyet Bermeo MD URINE ORDERABLES Final Resu lt [facility] [address] [place] [address], [place] [phone] * (ABNORMAL) URINALYSIS AUTO DIP (11/29/2024 11:06 AM CDT) COLOR (U) LIGHT YELLOW(A) YELLOW 11/29/2024 11:35 AM CDT [facility] TRANSPARENCY HAZY(A) CLEAR 11/29/2024 11:35 AM CDT [facility] SPECIFIC GRAVITY (U) 1.011 1.001 - 1.030 11/29/2024 11:35 AM CDT [facility] U PH 6.0 5.0 - 9.0 11/29/2024 11:35 AM CDT [facility] LEUKOCYTES (U) 4+(A) NEGATIVE 11/29/2024 11:35 AM CDT [facility] NITRITES 2+(A) NEGATIVE 11/29/2024 11:35 AM CDT [facility] PROTEIN RANDOM (U) TRACE(A) NEGATIVE 11/29/2024 11:35 AM CDT [facility] GLUCOSE (U) NORMAL NORMAL 11/29/2024 11:35 AM CDT [facility] KETONES MG/DL (U) NEGATIVE NEGATIVE 11/29/2024 11:35 AM CDT [facility] UROBILINOGEN NORMAL NORMAL EU/DL 11/29/2024 11:35 AM CDT [facility] BILIRUBIN (U) NEGATIVE NEGATIVE 11/29/2024 11:35 AM CDT [facility] BLOOD (U) 1+(A) NEGATIVE 11/29/2024 11:35 AM CDT [facility] URINE MICROSCOPIC URINE MICROSCOPIC TO FOLLOW. 11/29/2024 11:35 AM CDT [facility] URINE SPECIMEN OBTAINED BY CLEAN CATCH PROCEDURE / Unknown 11/29/2024 11:06 AM CDT us Tuyet Bermeo MD URINE ORDERABLES Final Resu lt [facility] [address] [facility] [place] [address], * COMPREHENSIVE METABOLIC PANEL (11/29/2024 11:05 AM CDT) GLUCOSE 82 70 - 99 MG/DL 11/29/2024 11:32 AM CDT [facility] BUN 13 7 - 18 MG/DL 11/29/2024 11:32 AM CDT [facility] CREATININE S/P/B 0.76 0.50 - 1.20 MG/DL 11/29/2024 11:32 AM CDT [facility] SODIUM S/P/B 137 136 - 145 MMOL/L 11/29/2024 11:32 AM CDT [facility] POTASSIUM S/P/B 4.1 3.5 - 5.1 MMOL/L 11/29/2024 11:32 AM CDT [facility] CHLORIDE S/P/B 102 100 - 108 MMOL/L 11/29/2024 11:32 AM CDT [facility] CO2 28.8 21.0 - 32.0 MMOL/L 11/29/2024 11:32 AM CDT [facility] CALCIUM S/P/B 8.7 8.5 - 10.1 MG/DL 11/29/2024 11:32 AM CDT [facility] BILIRUBIN TOTAL S/P/B 0.5 0.2 - 1.2 MG/DL 11/29/2024 11:32 AM CDT [facility] Comment: THIS ASSAY IS NOT RECOMMENDED FOR PATIENTS UNDERGOING TREATMENT WITH ELTROMBOPAG DUE TO THE POTENTIAL FOR FALSELY ELEVATED RESULTS. TOTAL PROTEIN S/P/B 7.0 6.4 - 8.2 G/DL 11/29/2024 11:32 AM CDT [facility] ALBUMIN S/P/B 3.8 3.4 - 5.0 G/DL 11/29/2024 11:32 AM CDT [facility] AST 18 15 - 37 U/L 11/29/2024 11:32 AM CDT [facility] ALT 30 14 - 55 U/L 11/29/2024 11:32 AM CDT [facility] ALKALINE PHOSPHATASE S/P/B 78 50 - 136 U/L 11/29/2024 11:32 AM CDT [facility] ANION GAP 6.2 5.0 - 15.0 MMOL/L 11/29/2024 11:32 AM CDT [facility] BUN CREATININE RATIO 17.1 6 - 26 11/29/2024 11:32 AM CDT [facility] A/G RATIO 1.2 1.0 - 2.5 RATIO 11/29/2024 11:32 AM CDT [facility] GFR ESTIMATE >90 >90 ML/MIN/1.7 3 M2 11/29/2024 11:32 AM CDT [facility] Comment: NOTE: eGFR is not calculated for patients <18 years of age. This is an estimated GFR calculation using the new CKD EPI creatinine equation without race and so does not require a correction factor for race. This estimated GFR should not be used for calculating drug doses. 11/29/2024 11:0 5 AM CDT us Tuyet Bermeo MD LABORATORY Final Resul t [facility] [address] [facility] [address] [place] [address], * (ABNORMAL) CBC W/DIFF AUTOMATED (11/29/2024 11:05 AM CDT) WBC 12.10(H) 4.50 - 11.00 x10'3/uL 11/29/2024 11:20 AM CDT [facility] RBC 4.76 4.00 - 5.20 x10'6/uL 11/29/2024 11:20 AM CDT [facility] HGB 13.7 12.0 - 16.0 G/DL 11/29/2024 11:20 AM CDT [facility] HCT 41.0 38.0 - 48.0 % 11/29/2024 11:20 AM CDT [facility] MCV 86.1 80.0 - 100.0 FL 11/29/2024 11:20 AM CDT [facility] MCH 28.8 26.0 - 34.0 PG 11/29/2024 11:20 AM CDT [facility] MCHC 33.4 31.0 - 37.0 G/DL 11/29/2024 11:20 AM CDT [facility] RDW 12.8 11.6 - 14.8 % 11/29/2024 11:20 AM CDT [facility] PLT 272 130 - 400 x10'3/uL 11/29/2024 11:20 AM CDT [facility] MPV 10.0 7.0 - 12.0 FL 11/29/2024 11:20 AM CDT [facility] CBC COMMENT AUTOMATED RBC MORPHOLOGY AND PLATELET EVALUATION NORMAL 11/29/2024 11:20 AM CDT [facility] NEUTROPHILS % 67.0 40.0 - 74.0 % 11/29/2024 11:20 AM CDT [facility] LYMPHOCYTES % 24.6 14.0 - 46.0 % 11/29/2024 11:20 AM CDT [facility] MONOCYTES % 6.0 4.0 - 13.0 % 11/29/2024 11:20 AM CDT [facility] EOSINOPHILS 1.3 0.0 - 7.0 % 11/29/2024 11:20 AM CDT [facility] BASOPHILS 0.5 0.0 - 3.0 % 11/29/2024 11:20 AM CDT [facility] IMMATURE GRANS % 0.6(H) 0.0 - 0.43 % 11/29/2024 11:20 AM CDT [facility] NRBC % 0.0 % 11/29/2024 11:20 AM CDT [facility] ABS. NEUTROPHILS TOTAL 8.11(H) 1.69 - 7.81 x10'3/uL 11/29/2024 11:20 AM CDT [facility] ABS. LYMPHOCYTES 2.98 0.21 - 5.42 x10'3/uL 11/29/2024 11:20 AM CDT [facility] ABS. MONOCYTES 0.72 0.04 - 1.37 x10'3/uL 11/29/2024 11:20 AM CDT [facility] ABS. EOSINOPHILS 0.16 0.00 - 0.68 x10'3/uL 11/29/2024 11:20 AM CDT [facility] ABS. BASOPHILS 0.06 0.00 - 0.08 x10'3/uL 11/29/2024 11:20 AM CDT [facility] ABS. IMMATURE GRANULOCYTES 0.07(H) 0.00 - 0.06 x10'3/uL 11/29/2024 11:20 AM CDT [facility] ABS. NUCLEATED RBC'S 0.00 0.00 - 0.01 x10'3/uL 11/29/2024 11:20 AM CDT [facility] 11/29/2024 11:0 5 AM CDT Tuyet Bermeo MD LABORATORY Final Resul t Performing Organization Address [facility] de Phone Number [facility] [address] [place] [address], * LIPASE (11/29/2024 11:05 AM CDT) LIPASE 30 16 - 77 UNITS/L 11/29/2024 11:32 AM CDT [facility] 11/29/2024 11:0 5 AM CDT Tuyet Bermeo MD LABORATORY Final Resul t Performing Organization Address [facility] [place] [address], [place] * MAMMOGRAM GENERIC (SCAN ORDER) (12/24/2023) Anatomical Region Laterality Modality Other 12/24/2023 us [facility] Scanned SCANNING Final Resu lt from Last 3 Months or Most Recently Relevant to Health Maintenance Insurance IE Care Teams Interior Assemblies Developer Prover Relationship Specialty Start Date End Date Shelby Tomlinson DO [address] [place] [address] [place] [address] PCP - General FAMILY PRACTICE 06/17/18
--- OUTSIDE RECORDS SUMMARY | 2024-12-15 16:49 | XMS_ITS | Encounter Summary ---
Author Organization [facility] Address [address] [place] [address] Care Team Providers Care Lamp Replacer Name Role Phone Shelby Tomlinson DO Primary Care Provider [phone] Encounter Details Date Type Department Care Team (Late st Contact Info) Description 10/21/2022 MyChart Message [facility] [address] [place], [place] [address] Mychart, [facility] Provider Air Quality Message Social History Tobacco Use Types Packs/Day Years Used Date Smoking Tobacco: Every Day Cigarettes 0.5 20 Smokeless Tobacco: Never Comments:PCP to school counselor Alcohol Use Standard Drinks/Week Comments Yes [...] Sex Assigned at Female 03/05/2020 8:01 AM NICKER AND BREAKER Legal Sex Female 6:51 PM CDT Gender Identity Female 03/05/2020 8:01 AM NICKER AND BREAKER Sexual Orientation Straight 03/05/2020 8: 01 AM NICKER AND BREAKER 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 Not on file Not on file documented as of this encounter Plan of Treatment Not on file documented as of this encounter Visit Diagnoses Not on filedocumented in this encounter Additional Health Concerns Infection Onset Date Last Indicated Resolved Time COVID-19 Rule Out 04/21/2023 04/21/2023 04/21/2023 3:35 PM NICKER AND BREAKER Assessment Noted Time PHQ-9 Depression Total Score: 0 06/05/19 23 7:48 AM NICKER AND BREAKER documented as of this encounter Care Teams Lamp Replacer Relationship Specialty Start Date End Date Shelby Tomlinson DO [address] [place] [address] [place] [address] PCP - General FAMILY PRACTICE 06/17/18 documented as of this encounter
== END 2024-12-15 17:34 | disposition home or self-care (01) ==
PROVIDERS: Student in an Organized Health Care Education/Training Program; Emergency Provider Physician Assistant; PCP Family Medicine Sports Medicine
DX: N20.1 Calculus of ureter (principal); R82.81 Pyuria
CPT/HCPCS: 36415; 74018; 80053; 81001; 81025; 85025; 87086; 99283

== ENCOUNTER 2024-12-23 10:51 | Outpatient (CLI) | payer OTHER, SELFPAY ==
--- OUTSIDE RECORDS SUMMARY | 2016-03-31 01:00 | XMS_ITS | Encounter Summary ---
Author Organization [facility] Healthcare Address [address] [place] [address] Care Team Providers Care Tabulating Clerk Name Role Phone Unavailable Primary Care Provider Unavailabl e Reason for Visit * Diagnostic Imaging (Routine) - Pending Review Specialty Diagnoses / Procedures Referred By Contac t Referred To Contact Procedures Breast Imaging Screening Outside Reference Transcribed Order, Provider Referral ID Status Reason Start Date Expiration Date V isits Requested Visits Authorized [id number] Pending Review 12/17/2023 01/15/2025 1 1 Encounter Details Date Type Department Care Team (Late st Contact Info) Description 03/31/2016 Hospital Encounter [facility] Radiology [facility] [address] [place] [phone] Social History Tobacco Use Types Packs/Day Years Used Date Smoking Tobacco: Every Day Comments Unknown Sex and Gender Information Value Date Recorded Sex Assigned at Not on file Legal Sex Female 9:28 PM MARKETING COMPLIANCE MANAGER Gender Identity Not on file Sexual Orientation Not on file documented as of this encounter Plan of Treatment Not on file documented as of this encounter Procedures Procedure Name Priority Date/Time Associated Diagnosis Comments BREAST IMAGING MG SCREENING OUTSIDE REFERENCE Routine 03/31/2016 12:00 AM MARKETING COMPLIANCE MANAGER documented in this encounter Results * Breast Imaging Screening Outside Reference (03/31/2016 12:00 AM MARKETING COMPLIANCE MANAGER) Impressions RAD[facility]MAMMO_[facility] - 12/17/2023 2:31 PM CDT These images are for Reference purposes only and have not been reviewed by [facility]iology. There will be no report generated by a [facility] Radiologist. Narrative RAD_MAMMO_[facility] - 12/17/2023 2:31 PM CDT EXAMINATION: Images For Reference Purposes Only us Provider Transcribed Order IMG MAMMO PROCEDURES Final Result RAD_MAMMO_[facility] documented in this encounter Visit Diagnoses Not on filedocumented in this encounter
--- OUTSIDE RECORDS SUMMARY | 2024-12-23 10:54 | XMS_ITS | Clinical Summary ---
Author Organization [facility] Address [address] [place] [address] Care Team Providers Care Rn Surgical Pcu Name Role Phone Shelby Tomlinson DO Primary Care Provider [phone] Source Comments [facility],non-owned Affiliates and Associated Physician Practices is amultiple site organization consisting of ambulatory clinics and hospital sitesin [place], [place], [place] and [place]. This disclosure is being madepursuant to the Care Everywhere program and may not contain all information available regarding this patient. Last updated 18.[facility] Active Problems Patient Care Coordination No te Formatting of this note migh t be different from the original. [id number] Problem Noted Date Diagnosed Date Placental abnormality, [...] complete this topic Insurance ANTHEM Care Teams Rn Surgical Pcu Relationship Specialty Start Date End Date Shelby Tomlinson DO PCP - General Family Medicine 01/17/15
[2024-12-23 11:36] LABS: INR 1.1; Partial Thromboplastin Time 28.2 Seconds (22.3-36.8); Prothrombin Time 14.1 Seconds (11.1-14.7)
== END 2024-12-23 10:52 | disposition home or self-care (01) ==
LOC: ANHLAB 10:52
PROVIDERS: PCP Family Medicine Sports Medicine; Visit Provider Urology
DX: Z01.812 Encounter for preprocedural laboratory examination (principal); N20.0 Calculus of kidney
CPT/HCPCS: 36415; 85610; 85730; 87086

== ENCOUNTER 2024-12-29 03:03 | Day surgery (SDC) | payer OTHER, SELFPAY ==
--- NOTE | 2024-12-22 15:01 | PC.NURSE ---
Report to the Outpatient Waiting Room, entrance under the green pavilion located off [facility], at time _0700_ on date _12/29/24_. Planned Procedure Time: 0900_.? Time changes happen often and if your time is changed the preop area will call you the afternoon before. - You and your visitor will be asked to self-screen and do not enter if you have any COVID symptoms. Please call surgeon if you need to reschedule. - A mask is optional within the hospital at this time. Patients may have clear liquids (water, carbonated beverages, clear teas, apple juice) until 3 hours prior to surgery with a maximum of 20 ounces. - No food from midnight until time of surgery and no smoking, or chewing tobacco (or any form of nicotine). No chewing gum, candy or mints. - Infants may have breast milk until 4 hours before surgery, infant formula 6 hours prior to surgery. - Children will be allowed to drink immediately following surgery.? If applicable, please bring a bottle or sippy cup to assist with drinking. Juice, water, soda, and popsicles are readily available.? For infants on formula, please bring formula the day of surgery.? Pacifiers are allowed. Take only the following medications with a SIP of water on the morning of surgery: NONE DO NOT STOP ANY OF YOUR OTHER PRESCRIPTION MEDICATIONS PRIOR TO SURGERY EXCEPT THE FOLLOWING Hold all vitamins and supplements for 3 days per anesthesiologist. Medications to discontinue per physician ___CHEK WITH DR BROOKS ABOUT STOPPING MELOXICAM Date to take last dose Please no make-up, nail nepali, hairspray, perfume, deodorant, or body powder the day of surgery.? No jewelry (including any body piercings) or valuables the day of surgery, leave them at home.? Please take a shower or bath the night before, or the morning of, surgery with an antibacterial soap.? Wear comfortable, loose fitting clothing.? Children are encouraged to wear pajamas. - Jewelry must be removed prior to entering the operating room.? Rings and piercings that are not removed may be cut off. - The hospital will not accept responsibility for valuables.? - Please leave all valuables, including medications, at home the day of surgery. If you are going home after surgery, a licensed residential driver must drive you home.? - NO public transportation without another adult if you receive anesthesia. - We recommend that an adult stay with you for 24 hours following discharge. - We also recommend that you do not drive, make important decision, drink alcoholic beverages, or take any drugs that were not prescribed by your health care provider for at least 24 hours after your discharge time. For Pediatric surgeries, we recommend two adults accompany the child home. Follow any additional instructions given to you from your surgeon. Telephone instructions given to VIANEY and asked if any additional questions and then verbalized understanding. Patient advised to call surgeon office or pre surgery nurse liaison [phone] if any additional questions.
[2024-12-22 15:13] VITALS: BMI 29.2
--- NOTE | ~2024-12-29 | CT_ITS ---
EXAMINATION: CT abdomen pelvis wo con DATE: 12/29/2024 07:53 INDICATION: Right ureteral stone TECHNIQUE: Computed tomography (CT) of the abdomen and pelvis was performed without intravenous contrast. Automated exposure control and iterative reconstruction technique were employed. The dose-length product was 184.45 mGy-cm. COMPARISON: None FINDINGS: Lung bases are clear. Heart size is normal. No pericardial or pleural effusion. Liver, gallbladder, spleen, pancreas and bilateral adrenal glands are normal. There are 3 small nonobstructing stones in the right kidney the largest measuring 3 mm. 4 mm stone in the proximal right ureter without hydronephrosis. 3-4 mm phlebolith in the right hemipelvis. No left-sided urolithiasis or hydronephrosis. Bowels including the appendix are normal. Bladder is normal. The uterus is not identified and has likely been surgically resected. No free intraperitoneal gas or fluid. No pathologically enlarged abdominal or pelvic lymphadenopathy. Transitional L1 segment with small hypoplastic right ribs. IMPRESSION: 1. Right sided urolithiasis with 4 mm proximal right ureteral stone without hydronephrosis. Reviewed, dictated and finalized at location A. IMPRESSION: 1. Right sided urolithiasis with 4 mm proximal right ureteral stone without hyd ronephrosis.
--- NOTE | ~2024-12-29 | XR_ITS ---
EXAMINATION: XR retrograde pyelo w/stent RT DATE: 12/29/2024 09:23 INDICATION: Right ureteral calculus TECHNIQUE: 2 fluoroscopic images of the abdomen were obtained during procedure performed by Dr. Ramos. Radiologist was not present for the imaging or procedure. The amount of fluoroscopy time used during this procedure was 0.3 minutes. Total DAP was 0.274 mGym^2. COMPARISON: None. FINDINGS: The stone seen in the proximal right ureter on prior CT is unable to be distinguished on the gun striper fluoroscopic image. Subsequent image demonstrates retrograde cannulation of the right ureter with retrograde contrast injection opacifying the normal-appearing calyces and pelvis of the right kidney. IMPRESSION: 1. Fluoroscopy utilized during urologic procedure. See procedure note for further detail. Reviewed, dictated and finalized at location A. IMPRESSION: 1. Fluoroscopy utilized during urologic procedure. See procedure note for furth er detail.
--- NOTE | ~2024-12-29 | XR_ITS ---
EXAMINATION: XR abdomen/kub 1V DATE: 12/29/2024 07:52 INDICATION: Right ureteral stone TECHNIQUE: A supine view of the abdomen on 2 radiographs was obtained. COMPARISON: CT dated 12/29/2024 FINDINGS: The 4 mm proximal right ureteral stone is visible between the inferior margin of the right transverse process of L3 and the lateral margin of the vertebral body. The smaller stone seen in the right kidney on CT are unable to be distinguished from the superimposed colonic stool. Unchanged phlebolith in the right hemipelvis. No dilated gas-filled bowel to suggest obstruction. Lung bases are clear. Heart size is normal. IMPRESSION: 1. 4 mm proximal right ureteral stone projecting lateral to the inferior aspect of the L3 vertebral body. Reviewed, dictated and finalized at location A.
[2024-12-29 07:30] VITALS: BP 94/55; PULSE 76; RESP 16; TEMP 36.2; O2SAT 99; BMI 29.5
[2024-12-29] MEDS: LACTATED RINGERS 1,000 ML 30 ML IV CONT (07:30)
--- NOTE | 2024-12-29 08:20 | PM.IMHP ---
H&P: HPI History of Present Illness Date/Time: 12/29/24 08:20 Chief Complaint: 5 mm proximal right ureteral calculus Narrative: Pleasant 44-year-old female was found to have a proximal right ureteral calculus. Stone is not visible on KUB in the she is here now for definitive management with cystoscopy, right retrograde, right ureteroscopy with stone extraction possible laser stent placement Review of Systems Review of Systems: All systems reviewed & are unremarkable except as noted in HPI and below PMFSH Past Medical History Medical History History of anxiety Social History Social History Smoking packs per day: 0.25 Smoking cigarettes per day: 5.0 Years smoked: 15 Smoking pack-years: 3.75 Smoking status: Former smoker Tobacco type: cigarettes and e-cigarettes/vaping Additional smoking assessment comments: QUIT CIGARETTES 09/2024 CURRENTLY VAPING Alcohol use details: 2 PER MONTH Living arrangements: with family Meds Home Medications and Allergies Home Medications ?Medication ?Instructions ?Recorded ?Confirmed ?Type bupropion HCl 150 mg 24 hr tablet, 150 mg PO HS 12/22/24 12/22/24 History extended release estradiol 2 mg tablet 2 mg PO DAILY 12/22/24 12/22/24 History meloxicam 15 mg tablet 15 mg PO DAILY 12/22/24 12/22/24 History progesterone micronized 200 mg 200 mg PO HS 12/22/24 12/22/24 History capsule Allergies Allergy/AdvReac Type Severity Reaction Status Date / Time prochlorperazine (From Allergy Severe Anaphylaxis Verified 12/22/24 14:49 Compazine) Exam Const: General: cooperative and no acute distress Resp: Effort & Inspection: normal respiratory effort Cardio: Rate: regular rate Rhythm: regular rhythm Assessment and Plan Assessment and plan (1) Right ureteral calculus: Code(s): N20.1 - Calculus of ureter Status: Acute Assessment and Plan: Cystoscopy, right retrograde, right ureteroscopy with stone extraction, possible laser, stent placement
--- NOTE | 2024-12-29 08:21 | WPDHPUPDATE1 ---
History and Physical Update Update Date/Time: 12/29/24 08:21 History and Physical has been reviewed, including an updated exam of the patient. There are NO changes in the patient's condition. Risks, benefits, and alternatives have been discussed and questions answered. Patient agrees to proceed with procedure.
--- NOTE | 2024-12-29 08:43 | P.PNAN_ITS ---
Anes - Initial Pre Proc Eval Procedure: Operation Date: 12/29/24 09:00 Proposed Procedures p Cystoscopy, Right Ureteroscopy, Possible Right Retrograde Pyelogram, Possible Right Stone Extraction, Possible Right Stent Placement, Possible Holmium Laser - Zeyad Ramos MD Date/Time: 12/29/24 08:43 Surgeon: Zeyad Ramos MD Pre Op Diagnosis: Right Ureteral Stone Patient Data Age: 44 Gender: F Height: 1.6 m Weight: 75.55 kg Last Vital Signs Temp 97.1 F L 12/29/24 07:30 Pulse 76 12/29/24 07:30 Resp 16 12/29/24 07:30 BP 94/55 L 12/29/24 07:30 Pulse Ox 99 12/29/24 07:30 O2 Del Method Room Air 12/29/24 07:30 Allergies Allergy/AdvReac Type Severity Reaction Status Date / Time prochlorperazine (From Allergy Severe Anaphylaxis Verified 12/22/24 14:49 Compazine) Home Medications ?Medication ?Instructions ?Recorded ?Confirmed ?Type bupropion HCl 150 mg 24 hr tablet, 150 mg PO HS 12/22/24 History extended release estradiol 2 mg tablet 2 mg PO DAILY 12/22/2412/22 History meloxicam 15 mg tablet 15 mg PO DAILY 12/22/2411/25 History progesterone micronized 200 mg 200 mg PO HS 12/22/24 0 12/22/24 History capsule Patient hx anesthesia problems: none Family hx anesthesia problems: none Results Review: All pre-operative results and documents have been reviewed as part of the pre- operative evaluation. [facility] Past Medical History Medical History History of anxiety Social History Social History Smoking packs per day: 0.25 Smoking cigarettes per day: 5.0 Years smoked: 15 Smoking pack-years: 3.75 Smoking status: Former smoker Tobacco type: cigarettes and e-cigarettes/vaping Additional smoking assessment comments: QUIT CIGARETTES 09/2024 CURRENTLY VAPING Alcohol use details: 2 PER MONTH Living arrangements: with family Anes - Eval Final PreProcedure Day of Procedure 12/29/24 08:43 Patient weight: normal Heart: regular rate and rhythm Lungs: clear to auscultation Airway: Mallampati scale class II Neurological: alert and oriented Last oral intake: >/= 8 hours ASA classification: II Emergent: no Anesthetic plan: proceed Anesthesia type and monitoring: general LMA and standard monitoring Results Review: All pre-operative results and documents have been reviewed as part of the pre- operative evaluation. Informed Consent: The patient's anesthetic plan and its attendant risks and benefits were discussed with the patient/family/POA. Questions were solicited and answers provided to the satisfaction of the patient/family/POA.
[2024-12-29] MEDS: ceFAZolin 2 GM in SODIUM CHLORIDE 0.9% IV 50 ML 100 ML IVPB (08:49)
[2024-12-29] MEDS: LIDOCAINE 2% GEL UROJET 10 ML PKG MUCOUS MEM (09:04)
--- NOTE | 2024-12-29 09:16 | S_PTH ---
PATIENT: Tasha Reardon LOC: [facility] U#:[id number] AGE/SX: 44/F ROOM: RE12/29/[address]: Zeyad Ramos, : 1980 BED: DIS: 12/29/2024 SPEC #: [id number] RECD: 12/29/24 11:35 STATUS: CHANTELLE REErik #: [id number] ANN: 12/29/24 09:[address]: Rachel,Zeyad Marcos DEPT: [facility] Surgical RECD BY: Dayanara Plasencia ENTERED: 12/29/24 11:35 SP TYPE: Surgical OTHR DR: Shelby Tomlinson, DO Tissues: A - Stone Procedures: Gross Exam Level 1 Crystalline Analysis
--- NOTE | 2024-12-29 09:19 | P.OP_ITS ---
Procedure Note - Detailed Date of Procedure 12/29/24 Pre-op Diagnosis Right Ureteral Stone Post-op Diagnosis Same Procedure Performed Cystoscopy, right retrograde, right ureteroscopy with laser, stone extraction, right ureteral stent placement 4.8 [place] contour Surgeon Zeyad Ramos MD Anesthesia General Findings right ureteral calculus 4-5 mm Description of Procedure patient was taken to the operative suite correctly identified. Once anesthesia was obtained she was placed in the dorsal lithotomy position and prepped and draped usual sterile fashion. Twenty-two [place] scope was inserted in the bladder. There were no tumors noted. The right ureteral orifice was cannulated with a guidewire. Ureteral access sheath was placed. Mini flexible scope was placed in the stone was visualized. It was too large to retrieved 1 pieces the ureter was a little tight. Two hundred micron fiber was used to then laser a fragment off of the stone. Escape basket was then used to grasp the largest piece of stone. This was sent for analysis. Flexible ureteral scope was then reinserted and the ureter was inspected as was the kidney. There were no residual stones noted. Pyelogram was then performed confirm placement of the stent. 4.8 [place] contour stent was then placed with the proximal end coiled in the renal pelvis and the distal end in the bladder. Bladder was drained. 2% viscous lidocaine was inserted into the urethra and patient is taken recovery stable condition. She will follow-up in a week's time for stent removal. This completes dictation. Please send a copy of op note to my office. Estimated Blood Loss 0 Drains Yes Packing No Pathology Yes Complications No immediate complications Condition Stable Disposition PACU
[2024-12-29 09:30] VITALS: BP 99/48; PULSE 62; RESP 10; TEMP 36.2; O2SAT 100
[2024-12-29] MEDS: fentaNYL CITRATE INJ (*CRX) 100 MCG/2 ML VIAL 25 MCG IV PUSH ×4 (09:37→10:02)
[2024-12-29 09:45] VITALS: BP 95/58; PULSE 60; RESP 14; O2SAT 100
[2024-12-29 10:00] VITALS: BP 93/49; PULSE 63; RESP 12; O2SAT 100
[2024-12-29 10:15] VITALS: BP 91/54; PULSE 63; RESP 12; O2SAT 97
[2024-12-29] MEDS: oxyCODONE HCL (*CRX) 5 MG TAB IR PO (10:33)
[2024-12-29 10:44] VITALS: BP 93/50; PULSE 84
== END 2024-12-29 10:55 | disposition home or self-care (01) ==
PROVIDERS: PCP Family Medicine Sports Medicine; Visit Provider Urology
PROC: (CPT 52352; principal; 2024-12-29 09:00)
DX: N20.1 Calculus of ureter (principal); F17.290 Nicotine dependence, other tobacco product, uncomplicated
CPT/HCPCS: 52356; 74018; 74176; 74420; 82365; 88300; J0690; A9270; C1769; C1894; C2617; J1100; J2003; J2250; J2405; J2704; J3010; J7120; Q9966